=== PATIENT | male | born 1995 | race Two or more races ===

== ENCOUNTER 2021-03-25 22:54 | Emergency (ER) | payer SELFPAY ==
[~2021-03-25] VITALS: Ht 167.6 cm; Wt 90.7 kg
[2021-03-25 22:57] VITALS: BP 149/97
== END 2021-03-26 00:32 | disposition left against medical advice (07) ==
LOC: ER 22:54
DX: H92.01 Otalgia, right ear (principal); Z53.21 Procedure and treatment not carried out due to patient leaving prior to being seen by health care provider

== ENCOUNTER 2021-04-05 22:27 | Emergency (ER) | payer SELFPAY | END 2021-04-06 02:26 | disposition left against medical advice (07) | LOC: ER 22:28 | DX: K08.89 Other specified disorders of teeth and supporting structures (principal); Z53.21 Procedure and treatment not carried out due to patient leaving prior to being seen by health care provider ==

== ENCOUNTER 2021-04-22 14:13 | Emergency (ER) | payer OTHER, SELFPAY ==
[~2021-04-22] VITALS: Ht 170.2 cm; Wt 127.0 kg
[2021-04-22 15:43] VITALS: BP 109/62
[2021-04-22] MEDS ORDERED: cefTRIAXone SOD 1,000 MG VL IM ONE ×2 (15:45→16:00)
== END 2021-04-22 16:20 | disposition home or self-care (01) ==
LOC: ER 14:13
DX: J03.90 Acute tonsillitis, unspecified (principal); Z20.822 Contact with and (suspected) exposure to COVID-19
CPT/HCPCS: 36415; 71045; 87426; 96372; 99284; J0696